=== PATIENT | female | born 1990 | race Caucasian/White ===

== ENCOUNTER 2019-06-10 16:03 | Emergency (ER) | payer BC, SELFPAY ==
--- NOTE | ~2019-06-10 | XR_ITS ---
EXAMINATION: XR chest 2V 06/10/2019 20:07 INDICATION: Chest pain. 32 weeks . Post VQ scan. PROCEDURE: 2 view chest COMPARISON: No prior studies for comparison. FINDINGS: The lungs are clear. The cardiomediastinal silhouette is within normal limits. There are no pleural effusions. There is no pneumothorax suspected. IMPRESSION: 1: NO ACUTE CARDIOPULMONARY DISEASE. Reviewed, dictated and finalized at location A. ICE CONSULTANT
--- NOTE | ~2019-06-10 | NM_ITS ---
NM lung vent and perfusion INDICATION: Chest pain TECHNIQUE: The patient inhaled aerosolized 20 mCi xenon-133. Following ventilation scan, 4.7 mCi Tc 99m MAA was injected intravenously for perfusion images. Multiple images were then acquired. COMPARISON: Chest x-ray dated 06/10/2019 FINDINGS: The comparison chest radiograph demonstrates no pulmonary infiltrates or pleural fluid. Th e perfusion scan is normal. The aerosol in images show uniform deposition throughout the lungs. IMPRESSION: 1: Normal ventilation and perfusion images. Reviewed, dictated and finalized at location A. ILING MACHINE SETUP OPERATOR
--- NOTE | ~2019-06-10 | CT_ITS ---
EXAMINATION: CTA chest PE protocol DATE: 06/10/2019 17:27 HAND THERAPIST INDICATION: Chest and back pain. Tachycardia. Patient 32 weeks . TECHNIQUE: Computed tomographic angiography (CTA) of the chest was performed with 100 mL Omnipaque-35 0 intravenous contrast. The dose-length product was 422.07 mGy-cm. Maximum intensity projection 3D-re constructions of the aorta and other arteries were constructed by the technologist on a separate work station. Automated exposure control and iterative reconstruction technique were employed. COMPARISON: No prior studies for comparison. . FINDINGS: Study is technically limited for evaluation of subsegmental pulmonary arteries. No large ce ntral pulmonary embolism. Cardiomegaly. No significant pleural or pericardial effusion. No thoracic l ymphadenopathy. No evidence for aortic aneurysm or dissection. No focal airspace consolidation. No pn eumothorax. No pulmonary nodules/masses. IMPRESSION: 1. No large central pulmonary embolism. Study limited for evaluation of peripheral pulmonary arteries . 2: Cardiomegaly. Reviewed, dictated and finalized at location A. THERAPIST IMPRESSION: 1. No large central pulmonary embolism. Study limited for evaluation of periphe ral pulmonary arteries. 2: Cardiomegaly.
[2019-06-10 16:10] VITALS: BP 119/86; PULSE 129; PULSE 130; RESP 16; TEMP 37; O2SAT 100
--- NOTE | 2019-06-10 16:11 | ED.CHESTPAIN ---
HPI - Chest Pain General Chief Complaint: Chest Pain Stated Complaint: CHEST PAIN 32WKS PREG Time Seen by Provider: 06/10/19 16:11 Source: patient Mode of arrival: ambulatory Limitations: no limitations History of Present Illness HPI narrative: A 29 y/o female pt that is 32 weeks , presents to the ED, with c/o SOB and CP that she describes as pressure that radiates to her upper back, that began today when she woke up. Pt reports that yesterday she had a fever of 101.9F,N/V/D, and body aches. She notes taking Tylenol for her fever, and Tums for her N/V, and trying to rest. She states her CP and back pain worsen when taking a deep breath. Pt denies having a cough, SANCHEZ, sore throat, rhinorrhea, ABD pain, dysuria or urine frequency. Her OBGYN is Dr. Vega. 4, Para 2, Abortus 1. Pt denies having any significant PMHx. MD complaint: chest pain (pressure radiating to upper back) Onset (ago): hour(s) Timing of current episode: still present Onset: awoke with symptoms Pain location: substernal Pain radiation: back (upper) Quality: other (pressure) Exacerbating factors: inspiration (deep breaths) Associated symptoms: nausea, vomiting, dyspnea, fever (101.9, yesterday) and other (musle aches, diarrhea) Treatment prior to arrival: other (Tylenol, Tums) Related Data Allergies Allergy/AdvReac Type Severity Reaction Status Date / Time amoxicillin Allergy Unknown Unknown Verified 06/10/19 16:18 Review of Systems Review of Systems: All systems reviewed & are unremarkable except as noted in HPI and below Constitutional: Constitutional: Reports body ache(s) (subsided), Reports fever(s) (101.9 subsided) and Denies headache(s) ENT: Denies sore throat and Denies other (rhinorrhea) Cardiovascular: Cardiovascular: Reports chest pain (substernal) and Reports dyspnea Respiratory: Respiratory: Denies cough Gastrointestinal: Gastrointestinal: Denies abdominal pain, Reports diarrhea (subsided), Reports nausea (subsided) and Reports vomiting (subsided) Genitourinary: Genitourinary: Denies nocturia and Denies dysuria Musculoskeletal: Musculoskeletal: Reports back pain (upper, radiates from chest) [facility] Past Medical History Medical History No significant past medical history Surgical History Surgical History History of dilation and curettage Family History Family History (Updated 05/19/16 @ 09:13 by DOCTOR UNKNOWN) Grandparent Family history of glaucoma Family history of Parkinson's disease Family history of dementia Family history of type 2 diabetes mellitus Mother Hypertension Family history of type 2 diabetes mellitus Father Family history of type 2 diabetes mellitus Social History Social History Smoking status: Never smoker Alcohol intake: current Living arrangements: with family Gender identity (if verbalized by the patient): Female Exam Const: General: cooperative, no acute distress and alert Nutritional Appearance: well nourished Orientation/consciousness: patient oriented x3 Limitations: no limitations HENMT: Mouth: Yes lip normal and Yes moist mucous membranes Resp: Effort & Inspection: normal respiratory effort Auscultation: clear to auscultation bilaterally Cardio: Rate: tachycardic Rhythm: regular rhythm GI: GI Palp: Yes Soft to palpation and No Tenderness to palpation present (GI) Auscultation: normal bowel sounds : Other: Uterus gravid, consistent with dates Skin: General skin exam: normal color Neuro: General: patient oriented x3 Cognition (Neuro): normal cognition Speech: normal speech Extrem: General: normal to inspection, full ROM and no clubbing, cyanosis or edema Psych: Mental Status: mental status grossly normal Affect: normal affect Attitude: cooperative Course Course Emergency Cours
--- NOTE | 2019-06-10 16:17 | ECG_ITS ---
Measurements Intervals [place] Rate: 133 P: 21 CT: 134 QRS: 28 QRSD: 84 T: 4 QT: 312 QTc: 464 Interpretive Statements SINUS TACHYCARDIA INCOMPLETE RIGHT BUNDLE BRANCH BLOCK DELAYED PRECORDIAL R/S TRANSITION BASELINE ARTIFACT- I, II, AVR, AVF, V4-V6 ABNORMAL ECG Electronically Signed On 06-11-2019 7:06:45 ESCROW OFFICER by Kuldeep Marks D.O.
[2019-06-10] MEDS: LACTATED RINGERS 1,000 ML 999 ML IV CONT ×2 (16:25→18:41)
[2019-06-10 16:31] LABS: Basophils Absolute Auto 0.1 K/mm3 (0.0-0.1); Basophils Percent Auto 0.7 % (0.2-1.2); Eosinophils Absolute Auto 0.1 K/mm3 (0-0.3); Eosinophils Percent Auto 0.4 % (0-4.4); Hematocrit 38.9 % (37.0-47.0); Hemoglobin 12.5 g/dL (12.0-15.0); Immature Granulocyte Absolute 0.59 K/mm3 (0.00-0.031); Lymphocytes Absolute Auto 1.09 K/mm3 (0.9-3.2); Lymphocytes Percent Auto 9.2 % (18.3-44.2); Mean Corpuscular HGB Conc 32.1 g/dl (32-36); Mean Corpuscular Hemoglobin 27.5 pg (26-34); Mean Corpuscular Volume 85.7 fl (80-100); Mean Platelet Volume 9.7 fl (7.4-10.4); Monocytes Absolute Auto 1.3 K/mm3 (0.1-0.6); Monocytes Percent Auto 10.6 % (2.6-8.5); Neutrophils Absolute Auto 8.7 K/mm3 (1.3-6.7); Neutrophils Percent Auto 74.1 % (45.5-73.1); Platelet Count Result 232 k/mm3 (150-375); Red Blood Count 4.54 M/mm3 (4.2-5.4); Red Cell Distribution Width 14.1 % (11.5-14.5); White Blood Count 11.8 K/mm3 (4.5-10.0)
[2019-06-10 16:44] LABS: Alanine Aminotransferase 21 U/L (4-35); Albumin Level 3.7 g/dL (3.5-5.1); Alkaline Phosphatase 94 U/L (38-126); Aspartate Amino Transferase 29 U/L (14-36); Bilirubin,Total 1.7 mg/dL (0.2-1.3); Blood Urea Nitrogen 2 mg/dL (7-17); Calcium 8.5 mg/dL (8.4-10.2); Carbon Dioxide 21 mmol/L (22-30); Chloride 101 mmol/L (98-107); Estimated CRCL calculation 157 ml/min; Estimated Glomerular Filt Rate > 60; Glucose 107 mg/dL (65-105); Potassium 3.3 mmol/L (3.4-5.0); Sodium 135 mmol/L (137-145)
[2019-06-10 16:47] LABS: Prothrombin Time 12.7 Seconds (11.1-14.7)
[2019-06-10 16:48] LABS: Partial Thromboplastin Time 24.8 SECONDS (22.3-36.8)
[2019-06-10 16:56] LABS: Troponin I < 0.012 ng/mL (0.000-0.034)
[2019-06-10 17:45] LABS: Add Urine Microscopic? YES; Appearance Urine Clear (Clear); Bacteria Urine Trace /hpf; Bilirubin Urine Negative (Negative); Blood Urine Negative (Negative); Color Urine Yellow (Yellow); Glucose Urine UA Negative (Negative); Ketones Urine 1+ mg/dL (Negative); Leukocyte Esterase Ur Negative LEU/UL (Negative); Nitrate Urine Negative (Negative); Protein Urine Negative (Negative); RBC Urine 0-2 /hpf (0-2); Specific Grav Ur 1.016 (1.001-1.035); Squamous Epithelial Cell Urine Many /hpf (Few); Urobilinogen Urine Negative mg/dL (<2.0); WBC Urine 0-3 /hpf
[2019-06-10 18:22] VITALS: BP 103/66; PULSE 105; RESP 19; O2SAT 91
[2019-06-10 20:03] LABS: Troponin I < 0.012 ng/mL (0.000-0.034)
[2019-06-10 20:37] VITALS: BP 105/71; PULSE 116; RESP 18; O2SAT 100
--- NOTE | 2019-06-15 13:44 | PC.NURSE ---
LATE ENTRY This note is being entered to document information to the patient's record. The following information was omitted on 06/15/19[], by [Katty Pa ].This pt received 1000ml of fluids that stopped at 1717. This pt received 1000 ml of fluids that stopped at 1927.
== END 2019-06-10 20:38 | disposition home or self-care (01) ==
PROVIDERS: Emergency Provider Emergency Medicine; PCP Internal Medicine
DX: R07.9 Chest pain, unspecified (principal)
CPT/HCPCS: 36415; 71046; 71275; 78582; 80053; 81001; 84484; 85025; 85610; 85730; 87804; 93005; 96360; 99284; A9540; A9558; J7120; Q9967

== ENCOUNTER 2019-07-31 04:56 | Inpatient (IN) | payer BC, SELFPAY ==
[2019-07-31] VITALS (26 sets, daily range): BP systolic 107–146; BP diastolic 59–93; PULSE 79–164; RESP 13–18; TEMP 36.5–37.1; O2SAT 98–99; BMI 33.0
--- NOTE | 2019-07-31 05:21 | LDADM ---
This patient, Eva Rahman, was admitted to Labor/Delivery/Recovery 103 on 07/31/19 at 04:56. Plans for labor, pain management and were discussed with patient. Patient/family oriented to hospital policies and general routines including ID bracelet, bed and alarms, visiting hours, pain management, procedures, bathroom and other care routines, personal items, smoking policy, room service/diet and guest tray routines, infant security routines, and visiting hours. Patient/Family are encouraged to report perceived risks to care and to ask questions if they do not understand what they are told or what they should do. See OBIX for further documentation.
[2019-07-31 05:52] LABS: Basophils Absolute Auto 0.1 K/mm3 (0.0-0.1); Basophils Percent Auto 0.6 % (0.2-1.2); Eosinophils Absolute Auto 0.2 K/mm3 (0-0.3); Eosinophils Percent Auto 1.3 % (0-4.4); Hemoglobin 13.1 g/dL (12.0-15.0); Immature Granulocyte Absolute 0.41 K/mm3 (0.00-0.031); Immature Granulocyte Percent A 3.1 % (0-0.5); Lymphocytes Absolute Auto 2.18 K/mm3 (0.9-3.2); Lymphocytes Percent Auto 16.7 % (18.3-44.2); Mean Corpuscular HGB Conc 32.8 g/dl (32-36); Mean Corpuscular Hemoglobin 27.1 pg (26-34); Mean Corpuscular Volume 82.8 fl (80-100); Mean Platelet Volume 10.5 fl (7.4-10.4); Monocytes Absolute Auto 0.9 K/mm3 (0.1-0.6); Monocytes Percent Auto 6.8 % (2.6-8.5); Neutrophils Absolute Auto 9.3 K/mm3 (1.3-6.7); Neutrophils Percent Auto 71.5 % (45.5-73.1); Platelet Count Result 214 k/mm3 (150-375); Red Blood Count 4.83 M/mm3 (4.2-5.4); Red Cell Distribution Width 15.5 % (11.5-14.5)
[2019-07-31] MEDS: LACTATED RINGERS 1,000 ML 125 ML IV CONT (05:52)
[2019-07-31] MEDS: OXYTOCIN 30 UNITS/NS 500 ML 30 UNITS/500 ML BAG IV CONT (05:53)
[2019-07-31 09:25] LABS: Rapid Plasma Reagin Non-Reactive (NonReactive)
--- NOTE | 2019-07-31 11:51 | P.PCNOB_ITS ---
OB - Delivery Note Procedure Delivery date: 07/31/19 Induction method: per pitocin protocol Delivery monitor: external FHT and external uterine Route of delivery: Laceration description: Perineal - 2nd Degree Delivery repair: vicryl Specimen: No Estimated blood loss (mL): 100 Anesthesia type: Local Disposition: floor [place] Baby Weeks of gestation at delivery: 39 Infant gender: Female Weight (pounds): 9 Weight (ounces): 7 presentation: vertex Placenta delivery description: Spontaneous cord vessel description: 3 Vessels score one minute: 8 score five minutes: 9
--- NOTE | 2019-07-31 11:51 | WPDOBADMIT ---
Obstetrics - Admit Note Admission Note: record reviewed. No pertinent additions to the history and/or any subsequent changes in the physical findings that are not consistent with the expected course of the were found. Additions to the history and/or subsequent changes in the physical findings follow. None.Here for MIL. Now /-2 AROM with clear fluid FHTs reactive
--- NOTE | 2019-07-31 11:57 | P.DS_ITS ---
DS: Diagnosis Discharge Diagnosis (1) 39 weeks gestation of : Code(s): Z3A.39 - 39 weeks gestation of Status: Acute (2) (normal spontaneous vaginal delivery): Code(s): O80 - Encounter for full-term uncomplicated delivery Status: Acute OB - DS: Summary OB Procedures : Ultrasound OB Procedures Intrapartum: Spontaneous Vag Delivery OB Procedures: : None Peripartum Data Delivery Method: Natural Vaginal Laceration description: Perineal - 2nd Degree complications: none Status at Discharge Functional status at discharge: independent ambulation Overall status at discharge: patient is progressing back to baseline Time Spent with Patient Time attestation: Total time spent providing and/or coordinating discharge services: DS: Data Data Completed and Pending Labs on day of discharge: Labs from last 24 hours 07/31/19 07/31/19 07/31/19 05:37 05:37 05:37 WBC 13.0 H RBC 4.83 Hgb 13.1 Hct 40.0 MCV 82.8 MCH 27.1 MCHC 32.8 RDW 15.5 H Plt Count 214 MPV 10.5 H Immature Gran % (Auto) 3.1 H Neut % (Auto) 71.5 Lymph % (Auto) 16.7 L [place] % (Auto) 6.8 Eos % (Auto) 1.3 Baso % (Auto) 0.6 Lymph # (Auto) 2.18 [place] # (Auto) 0.9 H Eos # (Auto) 0.2 Baso # (Auto) 0.1 Abs Immat Gran (auto) 0.41 H Absolute Neuts (auto) 9.3 H Absolute Nucleated RBC 0.0 Nucleated RBC % 0.0 RPR Non-reactive Blood Type A Positive Antibody Screen Negative Discharge Plan Discharge Attending physician on discharge: Nida Vega Discharging Clinician: Nida Vega Anticipated Discharge Date/Time: 08/01/19 07:41 Patient Disposition: Home, Self-Care Activity: pelvic rest Diet: regular Patient Instructions: Antibiotic Form Stand Alone Forms: General Discharge Information Follow-up/Referrals: Nida Vega MD [Physician] - 6 Weeks Discharge Medications: Continued cholecalciferol (vitamin D3) [Vitamin D3] 25 mcg (1,000 unit) Tablet 1,000 unit PO DAILY RF: 0 PNV cmb#95-ferrous fumarate-FA [] 28 mg iron- 800 mcg Tablet 1 tablet PO DAILY RF: 0 Date of admission: 07/31/19 04:56 Primary Care Provider: Maury,Quan Admitting Provider: Nida Vega Attending physician on admission: Nida Vega Condition: Stable Care Plan Goals: Received DepoProvera prior to DC and plan Mirena IUD at 10 wks
[2019-07-31] MEDS: OXYTOCIN 30 UNITS/NS 500 ML 30 UNITS/500 ML BAG 125 UNITS IV CONT (12:09)
[2019-07-31] MEDS: METHYLERGONOVINE MALEATE 0.2 MG/ML VIAL IM (12:45)
[2019-07-31] MEDS: WITCH HAZEL 40 PADS 1 PAD TOPICAL (14:15)
[2019-07-31] MEDS: BENZOCAINE 20% AER SPR (*SP) 56 GM CAN 1 SPRAY TOPICAL (14:15)
[2019-07-31] MEDS: DOCUSATE SODIUM 100 MG CAPSULE PO (14:49)
[2019-07-31] MEDS: IBUPROFEN 600 MG TABLET PO (14:49)
[2019-07-31] MEDS: ACETAMINOPHEN 325 MG TABLET 650 MG PO (14:49)
[2019-08-01] MEDS: IBUPROFEN 600 MG TABLET PO ×3 (02:08→13:18)
[2019-08-01 05:39] LABS: Hematocrit 32.7 % (37.0-47.0); Hemoglobin 10.6 g/dL (12.0-15.0)
[2019-08-01] MEDS: BENZOCAINE 20% AER SPR (*SP) 56 GM CAN 1 SPRAY TOPICAL (07:31)
[2019-08-01] MEDS: WITCH HAZEL 40 PADS 1 PAD TOPICAL (07:31)
[2019-08-01] MEDS: DOCUSATE SODIUM 100 MG CAPSULE PO (07:31)
[2019-08-01] MEDS: MULTIVIT/MIN/PREN/FOL AC/IRON TABLET 1 TAB PO (07:32)
--- NOTE | 2019-08-01 07:40 | PM.OBPNVD ---
OB - PN: Subj Subjective Date/time seen: 08/01/19 07:40 Patient comments: no complaints and pain well controlled baby status: doing well and nursing well OB - PN: Obj Data Labs CBC & Chem 7: 08/01/19 04:45 Labs: Laboratory Results - last 24 hr 07/31/19 08/01/19 05:37 04:45 Hgb 10.6 L Hct 32.7 L RPR Non-reactive OB - PN A/P Assessment and Plan (1) (normal spontaneous vaginal delivery): Code(s): O80 - Encounter for full-term uncomplicated delivery Status: Acute Assessment and Plan: Doing well. Plan DC home. Plan DepoProvera until Mirena IUD Time Spent With Patient Time: Total time spent is greater than 50% in coordination of care (as documented) at patient's floor/unit and/or counseling patient: Exam : Bimanual exam- vagina & uterus: other (Uterus firm, nt @U)
[2019-08-01 07:41] VITALS: BP 118/70; PULSE 93; RESP 18; TEMP 36.3
--- NOTE | 2019-08-01 09:10 | PC.NURSE ---
Observed mother is able to independently latch with appropriate positioning/alignment. She denies any nipple discomfort, is feeding as required and waking infant to feed if needed. has had 8 effective feedings in the past 24 hours, and is currently meeting outcomes for weight, output, jaundice and feeding frequencies. Mother states she feels confident to continue effective at home. Reviewed transition to breast milk, signs of adequate intake, and engorgement/relief. Instructed to call ICP if intake/output less than required. Reviewed regular medications mother is taking. Information provided per Ebony. Reviewed community resources on the [facility] website and in the Mom/Baby guide. Information on outpatient services provided. Mother has no further questions at this time.
--- NOTE | 2019-08-01 09:19 | PC.NURSE ---
Patient was given the opportunity to view the discharge video Mother & Baby Care, The First Two Weeks and to ask questions. Patient declined viewing the video and has been given the mother/baby guide for home reference.
--- NOTE | 2019-08-01 09:20 | PC.NURSE ---
Self care and infant care discharge instructions given including follow up visit date and time. Mother verbalized understanding. No questions or concerns verbalized. Very pleasant and cooperative. at side.
[2019-08-01] MEDS: medroxyPROGESTERone ACETATE IM 150 MG/ML SYR IM (12:02)
[2019-08-02 07:53] VITALS: BP 125/83; PULSE 83; RESP 16; TEMP 36.4; O2SAT 99
== END 2019-08-01 13:45 | disposition home or self-care (01) | DRG 807 ==
LOC: ANHLDR 11:58 → ANHOB2 15:00
PROVIDERS: Admitting Provider Obstetrics & Gynecology Gynecology; PCP Internal Medicine; Visit Provider Obstetrics & Gynecology Gynecology
DX: O62.3 Precipitate labor (principal); Z37.0 Single live birth; Z3A.39 39 weeks gestation of pregnancy; O70.1 Second degree perineal laceration during delivery
CPT/HCPCS: 36415; 85014; 85018; 85025; 86592; 86850; 86900; 86901; A9270; J1050; J2210; J2590; J7120